=== PATIENT | female | born 1950 | race Caucasian/White ===

== ENCOUNTER 2024-04-08 11:15 | Outpatient (RCR) | payer MEDICARE, BC, SELFPAY ==
--- NOTE | 2024-02-13 15:18 | PT.OPEX ---
PT [place] Outpatient Eval PT [facility] Outpatient Eval Start: 02/06/24 07:42 Freq: Status: Active Protocol: Document 02/13/24 12:40 MLS (Rec: 02/13/24 15:17 MLS [id number]) E-signed By Lakisha Hauser DPT Physical Therapy Outpatient Evaluation Insurance Information Recert Due Date 05/12/24 Insurance Name Medicare B,Blue Cross/Blue Shield Medical Diagnosis M17.11 Unilateral primary OA, right knee Treating Diagnosis Right knee pain Referring MD Dr. Muñiz Subjective Subjective Patient is a 74 year old female who presents to physical therapy with signs and symptoms consistent with right knee pain and OA. She states that the pain started a couple years ago and it has gotten worse over the last couple months. She got a cortisone shot about 2 weeks ago. She states that it did help but she does continue to have pain on the medial and inferior aspect of knee. No complaints of numbness or tingling. She states that she just started doing some yoga and she walks 2 miles flat almost every day. She states that her xrays showed almost bone on bone on the medial side, and almost normal space on the outside. She states that she is planning a [place] trip for this fall. Aggravating factors include: walking, standing, aerobics/ carter, sleeping, stairs Alleviating factors include: ibuprofen, cortisone shot. Significant past medical history includes skin cancer being monitored and osteopenia . Patient would like to build muscle and get back to exercising through physical therapy sessions. 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 Objective Other/Pertinent Objective GAIT/FUNCTIONAL MOBILITY Single leg stance: increase in pain medial aspect Squat: with pain medial aspect KNEE ROM Left: Grossly tested WNL Right: Extension/Flexion: 0-130 HIP ROM Grossly tested WNL B LLE MMT: Hip flexion: R 4-/5 L 4/5 Hip abduction: R 4-/5 L 4/5 Hip extension: R 4/5 L 4/5 Knee flexion: R 4/5 L 4/5 Knee extension: R 4/5 L 4/5 SPECIAL TEST -Anterior drawer: negative -Posterior Drawer: negative -Valgus Test: negative 0-30 -Varus Test: negative 0-30 -Joint line tenderness: medial and lateral joint line tenderness -Jenna test: positive -Bonner Compression: negative TX: Access Code: [email or web address] URL: [email or web address] Date: 02/13/2024 Prepared by: Lakisha Hauser Exercises - Supine Quadricep Sets - 1 x daily - 7 x weekly - 3 sets - 10 reps - 5 hold - Active Straight Leg Raise with Quad Set - 1 x daily - 7 x weekly - 3 sets - 10 reps - Supine Heel Slide - 1 x daily - 7 x weekly - 3 sets - 10 reps - Supine Bridge - 1 x daily - 7 x weekly - 3 sets - 10 reps - 5 hold - Clamshell - 1 x daily - 7 x weekly - 3 sets - 10 reps Functional Test Performed & Score 24/80 A score increase of 6 points shows a significant improvement in lower extremity function. Assessment Assessment/Impression Pt is a 74 year old female who presents with concerns of right knee pain and OA. Patient also has notable objective findings including tenderness to palpation and decreased strength which are also likely contributing to the problem. Patient is a good candidate for skilled therapy to target deficits described above. Skilled PT intervention is necessary for use of therapeutic exercise manual therapy, neuromuscular re- education, gait training, and therapeutic activity. Functional impairments include difficulty with: standing, walking, exercising, and ADLs. See appropriate sections of PT eval for complete list of goals and POC. D/C plan and criteria is for pt to achieve the goals as listed below or until max rehab potential is met. Pt was agreeable with plan of care and goals established. Primary Functional Limitations standing walking exercising ADLs Plan of Care Rehabilitation Potential Good Physical Therapy Goals Within 10-12 weeks: 1.Pt will demonstrate independence in performance of home exercise program with the use of video and/or handouts in order to optimize functional mobility and reduce risk for re-injury. 2.Pt will demonstrate consistent HEP compliance to ensure progress in reaching established goals during course of care. 3.Patient will be able to do yoga for 30 min without pain. 4.Patient will report pain levels <2/10 with all activities in order to improve functional mobility at home, work and during functional leisure activities. 5.Patient is able to sleep without waking more than one time due to pain in a 6-8 hour time frame. 6.Patient will be able to walk her dog up to one mile without pain. 7.Pt will be able to ascend/ descend 1 flight of stairs in order to perform ADLs pain free. 8.Pt will exhibit 6 pt improvement in Lower Extremity functional Scale to demonstrate functional improvement and progress towards goals Coordination/Communication With Referral Source Treatment Plan/Direct Interventions Joint Mobilization,Manual Therapy,Neuromuscular Re-ed, Therapeutic Activities, Therapeutic Exercises, Ultrasound Patient Will Be Discharged From Therapy Independently Progressing Evaluation Billing Untimed Code Treatment Minutes 30 Complexity Low
== END 2024-08-06 23:59 | disposition home or self-care (01) ==
PROVIDERS: PCP Family Medicine; Visit Provider Orthopaedic Surgery
DX: M17.11 Unilateral primary osteoarthritis, right knee (principal); Z51.89 Encounter for other specified aftercare
CPT/HCPCS: 97110; 97140; 97161

== ENCOUNTER 2024-05-30 06:06 | Day surgery (SDC) | payer MEDICARE, BC, SELFPAY ==
[2024-05-29] MEDS: LACTATED RINGERS 1000 ML 1,000 ML 100 ML IV (06:30)
[2024-05-29] MEDS: MIDAZOLAM HCL 1 MG/ML inj IVP (07:04)
[2024-05-29] MEDS: fentaNYL 100 MCG/2 ML inj IVP (07:06)
[2024-05-30] VITALS (21 sets, daily range): BP systolic 91–156; BP diastolic 48–86; PULSE 60–118; RESP 12–18; TEMP 35.5–36.6; O2SAT 95–100; BMI 21.7
[2024-05-30] MEDS: SODIUM CHLORIDE 0.9 % (FLUSH) 10 ML SYRINGE IVF ×2 (06:30→12:19)
[2024-05-30] MEDS: ACETAMINOPHEN 500 MG TABLET 1000 MG PO ×3 (06:40→20:21)
--- NOTE | 2024-05-30 07:13 | SUR.PREOP ---
TIME?OUT:?0703 PT/RN/MDA?VERIFICATION?OF?SURGICAL?SITE,?PROCEDURE,?AND?CONSENT OBTAINED?PRIOR?TO?INVASIVE?PROCEDURE.
[2024-05-30] MEDS: TRANEXAMIC ACID 100 MG/ML INJ 1000 MG IV (07:42)
[2024-05-30] MEDS: CEFAZOLIN 2 GM INJ IVP (07:46)
--- NOTE | 2024-05-30 08:03 | SUR.OPER ---
PATIENT QUESTIONS ANSWERED SATISFACTORILY PREOPERATIVELY.? PATIENT BROUGHT TO OR #3 PER CART AFTER ADMINISTRATION OF A BLOCK.? Patient positioned supine on OR #3 bed.? The perioperative?team supported arms bilaterally on arm boards.?Final approval of positioning by surgeon.?
--- NOTE | 2024-05-30 08:40 | CRLHL7_ITS ---
For Patients: As a result of the Cures Act, medical imaging exams and procedure reports are released immediately into your electronic medical record. You may view this report before your referring provider. If you have questions, please contact your health care provider. Indication: Post op TKA Technique: Two views right knee Findings/Impression: Hardware from a right total knee arthroplasty is in satisfactory position. Bone alignment is normal. No sign of acute fracture. Postop changes are within normal limits. Dictated by Caleb Valera MD @ 05/30/2024 10:43:50 AM (Electronically Signed)
--- NOTE | 2024-05-30 08:42 | P.ORPRC_ITS ---
Procedure Note Date of procedure: 05/30/24 Procedure: PREOPERATIVE DIAGNOSIS: Right knee osteoarthritis POSTOPERATIVE DIAGNOSIS: Right knee osteoarthritis NAME OF OPERATION: Right total knee arthroplasty SURGEON: Roddy Muñiz MD BLANCHING MACHINE OPERATOR: Madelyn Mackey PA-C ANESTHESIA: Spinal ESTIMATED BLOOD LOSS: 0 mL COMPLICATIONS: None SPECIMENS: None DRAINS: None PREOPERATIVE ANTIBIOTICS: Ancef 1 g IMPLANTS: 1. J&J Attune # 4 narrow posterior stabilized femur 2. # 3 fixed-bearing tibia 3. #4 posterior stabilized, 5 mm fixed-bearing polyethylene 4. 35 patella INDICATIONS: The patient is a 74-year-old with a longstanding history of severe, unrelenting right knee pain secondary to end-stage (grade IV) right knee osteoarthritis. Despite appropriate nonoperative management, including activity modification, anti-inflammatories, [id number]-[id number] pain medication, bracing, physical therapy, and injections they continue to have pain and disability. Operative intervention was offered. The risks, benefits and expected outcomes were discussed in detail. These inc luded but were not limited to: Infection, bleeding, injury to blood vessel or nerve, venous thromboembolism. All questions were answered to their satisfaction. Use of an digital sales assistant was necessary throughout the case for patient positioning and safety, soft tissue retraction, and closure. PROCEDURE: Spinal anesthesia was administered. The patient was placed supine on the operating table. The digital sales assistant made sure the patient was positioned appropriately. The lower extremity was prepped and draped in the usual sterile fashion. The limb was exsanguinated with the Joel bandage. The pneumatic tourniquet was inflated to 300 mmHg. A standard anterior incision was made with the knee in flexion. Subcutaneous dissection was sharply taken through fascial layer #1. Full-thickness medial and lateral flaps were elevated. The digital sales assistant retracted the soft tissues and protected them throughout the case. A standard subvastus approach was made. The patella was subluxed. The infrapatellar fat pad was debrided. The menisci and cruciate ligaments were sharply d?brided. Marginal osteophytes were d?brided with the rongeur. The drill was used to penetrate the femoral canal. The canal was aspirated and irrigated with pulse lavage. The intramedullary femoral guide was placed for a 5-degree valgus cut, removing 10 mm off the distal femur. The saw was used to make the cut. Whitesides line and the trans epicondylar axis were marked. The femoral sizing guide was pinned onto the distal femur. Three degrees of external rotation nicely parallels the transepicondylar axis. Pins were placed for posterior referencing. The four-in-one cutting guide was pinned onto the distal femur. The anterior, posterior, and chamfer cuts were made. The digital sales assistant protected the collateral ligaments. The box cutting guide was pinned. The box cuts were made. The boxed trial was placed and was an excellent fit. Drill holes for the lugs were made. Attention was then turned to the proximal tibia. The extramedullary tibial guide was placed for a neutral varus/valgus cut with 5 degrees of posterior slope, removing 0 mm based off the medial tibial surface. The digital sales assistant protected the collateral ligaments and the neurovascular bundle. The saw was used to make the cut. Trial components were placed. The knee was nicely balanced in both flexion and extension. The trial components were removed. The tray was placed in appropriate rotation, parallel to our tibial cutting pins. It was pinned by the digital sales assistant and the drill and the punch were used. The tray was removed. The punch was used again. We placed a bone plug in the femoral canal. Attention was then turned to the patella. [place] patellar thickness was 20 mm. The lobster claw resection guide was used with the 7.5 mm ivette. The saw was used to make the cut. Drill holes were made by the digital sales assistant. The trial was placed and was an excellent fit. Cancellous surfaces were irrigated with pulse lavage and thoroughly dried by the digital sales assistant. We cemented the tibial component, then the femoral component. We impacted the 5 mm polyethylene onto the tibial tray. The knee was brought into full extension. We then cemented the patellar component. Excessive cement was removed. The cement was allowed to harden. The knee was taken through a range of motion and was found to be nicely balanced in both flexion and extension. The patella tracks centrally. The digital sales assistant did a three minute dilute Betadine solution soak. The digital sales assistant irrigated the wound with 3 liters of normal saline via pulse lavage. The digital sales assistant reapproximated the extensor mechanism with #1 Vicryl in an interrupted [id number]-pf-[id number] fashion. The digital sales assistant then ran the extensor mechanism with a #1 PDO Stratafix. The digital sales assistant closed the subcutaneous tissues with a 3-0 Stratafix and the skin with a running 3-0 Stratafix in a subcuticular fashion. Glue was used to seal the skin. The digital sales assistant placed a dry dressing. Sponge and needle counts were correct x2. The patient tolerated the procedure well. There were no apparent complications. They were carefully transferred to the hospital bed and taken to the postanesthesia care unit in satisfactory condition. PLAN: The patient will be mobilized with physical therapy. Aspirin will be used for DVT prophylaxis. They will be discharged to home once medically appropriate.
--- NOTE | 2024-05-30 09:14 | W.ANESCHARGE ---
Anesthesia Charges Start Date/Time Anesthesia Start Date: 05/30/24 Anesthesia Start Time: 07:19 Stop Date/Time Anesthesia Stop Date: 05/30/24 Anesthesia Stop Time: :29 Summary Extremes of Age - Over 70 or under 1: MDA
--- NOTE | 2024-05-30 09:15 | P.NB_ITS ---
Nerve Block Nerve Block Time Seen by Provider: 07:06 Date Seen: 05/30/24 Type of block requested by surgeon for post-operative analgesia: geniculars Side: right Time out performed: Yes Verification of patient name: Yes Verification of date of : Yes Site marking: site marked Name of person performing procedure: Rob Continuous monitoring Was continuous monitoring of O2 sat, B/P, tack cleaner, recorded every 15 minutes?: Yes Procedure Checklist: sterile prep, needles and gloves Medications given in 5ml increments after negative aspiration: Ropivicaine %: 0.5 mL: 9 Needle gauge: 25 Patient tolerated procedure well: Yes Block Charges Block Charge (with Pro Fee): Genicular Nerve Block Use of Ultrasound Machine for Block: No
--- NOTE | 2024-05-30 09:15 | W.PM.NB ---
Nerve Block Nerve Block Time Seen by Provider: 07:06 Date Seen: 05/30/24 Type of block requested by surgeon for post-operative analgesia: adductor canal Side: right Time out performed: Yes Verification of patient name: Yes Verification of date of : Yes Site marking: site marked Name of person performing procedure: Rob Continuous monitoring Was continuous monitoring of O2 sat, B/P, monitor and storage bin tender, recorded every 15 minutes?: Yes Procedure Checklist: sterile prep, needles and gloves Ultrasound guided. Images saved: Yes Medications given in 5ml increments after negative aspiration: Ropivicaine %: 0.5 mL: 20 Needle gauge: 20 Decadron (mg): 10 Precedex (mcg): 25 Patient tolerated procedure well: Yes Additional comments: Needle noted adjacent to nerve Block Charges Block Charge (with Pro Fee): Femoral Nerve Use of Ultrasound Machine for Block: Yes- US Guidance/pain block
--- NOTE | 2024-05-30 09:28 | P.ANES_ITS ---
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
[2024-05-30] MEDS: LACTATED RINGERS 1000 ML 1,000 ML 100 ML IV (09:30)
[2024-05-30] MEDS: HYDROmorphone 0.5 mg/0.5 ml inj IVP ×2 (12:08→20:22)
[2024-05-30] MEDS: CEFAZOLIN 1 GM in 0.9 % SODIUM CHLORIDE Mini-bag 100 ML IVPB ×2 (13:47→22:46)
[2024-05-30] MEDS: OXYCODONE 5 MG TABLET PO ×3 (13:47→22:46)
[2024-05-30] MEDS: ONDANSETRON 2 MG/ML inj 4 MG IVP ×2 (16:55→22:47)
--- NOTE | 2024-05-30 18:50 | PM.IMCN1 ---
Date of Consult Patient: [place] Patient Consult date: 05/30/24 Requesting Physician: Orthopedics Primary Care Provider: Kristyn Bletran MD Consult Narrative Reason for consult: Post op management for overactive bladder Narrative: Anna Bellamy is a 74 year old woman with advanced, symptomatic right gonarthrosis undergoes elective right total knee arthroplasty on 05/30/[address] Muñiz, [place], [place]. No apparent complications. Doing well immediately postoperatively. Review of Systems Status of ROS: Reports: 6 or more systems reviewed and unremarkable except as noted in History and below [facility] Medical History OAB (overactive bladder) ?N32.81 - Overactive bladder (ICD-10) Osteopenia ?M85.80 - Other specified disorders of bone density and structure, unspecified site (ICD-10) Dry eye ?H04.129 - Dry eye syndrome of unspecified lacrimal gland (ICD-10) Atypical nevi ?D22.9 - Melanocytic nevi, unspecified (ICD-10) Glaucoma ?H40.9 - Unspecified glaucoma (ICD-10) Melanoma ?C43.9 - Malignant melanoma of skin, unspecified (ICD-10) Basal cell carcinoma (BCC) ?C44.91 - Basal cell carcinoma of skin, unspecified (ICD-10) Surgical History History of arthroplasty of right knee (05/30/24) ?Z96.651 - Presence of right artificial knee joint (ICD-10) History of wisdom tooth extraction ?K08.409 - Partial loss of teeth, unspecified cause, unspecified class (ICD-10) History of elbow surgery (1962) ?Z98.890 - Other specified postprocedural states (ICD-10) Family History Mother Breast cancer Brother Diabetes Sleep apnea Heart disease Aunt Breast cancer Social History Narrative: -Dougie What is your current living situation?: I presently have a place to live Problems where you live: no known problems In the past 12 months, utilities in danger of being shut off: no In past 12 months, lack of transportation kept you from medical appts, meetings, work, or getting things needed for daily living: no In the past 12 mos, have been you worried that your food would run out before you had money to buy more?: never true In the past 12 mos, the food you bought just didn't last and you didn't have money to buy more?: never true Highest level of school completed/degree received: some college, no degree Smoking Status: Never smoker Do you use any of these nicotine containing products: None Second hand tobacco smoke exposure: No How often do you have a drink containing alcohol: monthly or less Alcohol type: beer and wine How many standard drinks containing alcohol do you have on a typical day: 1 or 2 How often do you have six or more drinks on one occasion: Never AUDIT-C Alcohol total score: 1 Non-prescribed substance use: denies use Caffeine: Yes (1 cup daily) Are you now , , , , never or living with a partner: Social isolation score (0-1 are the most socially isolated patients): 1 How often does anyone, including family, friends and others, physically hurt you: never How often does anyone, including family, friends and others, insult or talk down to you: never How often does anyone, including family, friends and others, threaten you with harm: never How often does anyone, including family, friends and others, scream or curse at you: never service: No Meds Home Medications and Allergies Home Medications ?Medication ?Instructions ?Recorded ?Confirmed ?Type calcium carbonate (Calcium 600) 600 mg PO DAILY 01/24/24 05/30/24 History multivitamin (Multiple Vitamins 1 tab PO DAILY 01/24/24 05/30/24 History tablet) omega-3 fatty acids 1,000 mg 1,000 mg PO DAILY 01/24/24 05/30/24 History capsule solifenacin 5 mg tablet 5 mg PO DAILY 01/24/24 05/30/24 History digestive enzymes 1 cap PO DAILY 05/28/24 05/30/24 History cholecalciferol (vitamin D3) 25 25 mcg PO DAILY 05/30/24 05/30/24 History mcg (1,000 unit) capsule Allergies Allergy/AdvReac Type Severity Reaction Status Date / Time amoxicillin [From Augmentin] Allergy Vomiting Verified 05/30/24 06:31 clavulanic acid Allergy Vomiting Verified 05/30/24 06:31 [From Augmentin] hydrocodone Allergy severe Verified 05/30/24 06:31 illness thiopental Allergy Nausea Verified 05/30/24 06:31 tetracycline AdvReac Nausea Verified 05/30/24 06:31 Exam Narrative: Exam Narrative: I examine her in her hospital room. Appears comfortable and in no acute distress. Somewhat hard of hearing but adequate with adequate vision. Alert and oriented x4. Friendly, articulate, cooperative. Lungs entirely clear to auscultation without wheezing, rhonchi, or rales. Chest wall excursions are full. Heart tones with regular rhythm, normal S1-S2, without murmur, gallop, or rub. PMI not laterally displaced. Abdomen is thin with active bowel sounds, soft, nontender. Moves all 4 extremities. No focal motor neurologic deficits. Const: Vital Signs, click to edit/add: Vital Signs - 24 hr 05/30/24 06:53 05/30/24 07:04 05/30/24 07:10 Temperature 97.7 F Pulse Rate 104 H 118 H 81 Pulse Rate [Left P ulse Oximeter] Respiratory Rate 16 16 16 Blood Pressure 151/74 H 156/86 H 130/71 Blood Pressure [Le ft Arm] Pulse Oximetry 100 100 100 Oxygen Delivery Me thod Room Air Nasal Cannula Nasal Cannula Oxygen Flow Rate 2 2 05/30/24 09:25 05/30/24 09:30 05/30/24 09:40 Temperature 97.4 F L Pulse Rate 78 77 66 Pulse Rate [Left P ulse Oximeter] Respiratory Rate 15 12 12 Blood Pressure 96/50 L 97/56 L 96/48 L Blood Pressure [Le ft Arm] Pulse Oximetry 95 97 97 Oxygen Delivery Me thod Room Air Room Air Room Air Oxygen Flow Rate 05/30/24 09:45 05/30/24 09:50 05/30/24 10:03 Temperature 97.3 F L 95.9 F L Pulse Rate 68 67 70 Pulse Rate [Left P ulse Oximeter] Respiratory Rate 12 12 16 Blood Pressure 100/55 L 112/59 L 93/54 L Blood Pressure [Le ft Arm] Pulse Oximetry 100 100 96 Oxygen Delivery Me thod Room Air Room Air Room Air Oxygen Flow Rate 2 0 05/30/24 10:15 05/30/24 10:30 05/30/24 10:45 Temperature 96.3 F L Pulse Rate 64 65 64 Pulse Rate [Left P ulse Oximeter] Respiratory Rate 16 16 16 Blood Pressure 103/56 L 91/61 101/58 L Blood Pressure [Le ft Arm] Pulse Oximetry 97 97 [address] [facility] Room Air Oxygen Flow Rate 05/30/24 11:00 05/30/24 11:30 05/30/24 12:00 Temperature 96.9 F L 97.2 F L Pulse Rate 63 60 69 Pulse Rate [Left P ulse Oximeter] Respiratory Rate 16 16 18 Blood Pressure 109/62 116/59 L 124/63 Blood Pressure [Le ft Arm] Pulse Oximetry 98 98 [address] [facility] Room Air Room Air Oxygen Flow Rate 05/30/24 13:00 05/30/24 14:00 05/30/24 15:30 Temperature 97.9 F 97.8 F Pulse Rate 64 68 Pulse Rate [Left P ulse Oximeter] 82 Respiratory Rate 16 16 18 Blood Pressure 118/80 124/58 L Blood Pressure [Le ft Arm] 105/61 Pulse Oximetry 96 99 [address] [facility] Room Air Room Air Oxygen Flow Rate 05/30/24 15:50 05/30/24 16:30 Temperature 97.6 F Pulse Rate Pulse Rate [Left P ulse Oximeter] 84 Respiratory Rate 16 Blood Pressure Blood Pressure [Le ft Arm] 106/63 Pulse Oximetry [address] [facility] Oxygen Flow Rate Assessment and Plan Assessment and plan (1) Osteoarthritis of right knee: Status: Acute (2) History of arthroplasty of right knee: Problem comment: - Right total knee arthroplasty (05/30/2024, Dr. Muñiz) who will continue to manage the patient in hospital and in the outpatient setting as planned - agree with postoperative venous thromboembolism prophylaxis per Orthopedic surgery - agree with perioperative antibiotic prophylaxis per Orthopedic surgery - hospitalists available to support patient care in her postoperative state - PT and OT assessing and supporting patient in hospital with plans for outpatient follow-up - completed hospitalist portion of discharge Status: Acute (3) OAB (overactive bladder): Problem comment: - medically supported with solifenacin ([facility]) Status: Acute Plan 1. Reviewed impression with patient 2. Reviewed recommendations with patient 3. Answered patient's questions to her satisfaction 4. Patient agreeable with above stated plans and recommendations Total Time Spent Total Time Spent: 50 minutes
[2024-05-30] MEDS: SENNOSIDES 1 TAB TABLET 2 TAB PO (20:22)
[2024-05-30] MEDS: ASPIRIN 81 MG TABLET EC PO (20:22)
--- NOTE | 2024-05-30 23:40 | PC.NURSE ---
Patient alert and orientedx4. Complains of nausea. Had one episode of emesis( brown liquid,100ml). PRN Zofran given with minimal effect. Continued to complain of nausea. Hardly eats any food this shift( 2 ice cream cups). She does complain of feeling dizzy. ( Has diagnosis of vertigo) Bowel sounds active, patient reports passing flatulence and burping. Patient also rates pain high 8/10 despite multiple interventions for pain management. She is able to ambulate with Ax1 with a walker and gait belt to the bathroom. No skin issues noted. Vitals signs remain stable.
[2024-05-31 01:21] VITALS: RESP 16; O2SAT 97
[2024-05-31] MEDS: ACETAMINOPHEN 500 MG TABLET 1000 MG PO ×2 (02:20→08:12)
[2024-05-31 02:22] VITALS: BP 108/58; PULSE 96; RESP 18; TEMP 36.4; O2SAT 95
[2024-05-31] MEDS: OXYCODONE 5 MG TABLET PO ×3 (04:56→10:21)
[2024-05-31 06:48] LABS: Basophils Percent Auto 0.1 % (0.0-3.0); Hematocrit 32.5 % (33.0-51.0); Hemoglobin* 10.6 gm/dL (12.0-16.0); Immature Granulocytes Pct Auto 0.3 %; Mean Corpuscular HGB Conc 33 gm/dL (32-36); Mean Corpuscular Hemoglobin 29 pg (26-34); Mean Corpuscular Volume 89 fL (80-100); Monocytes Percent Auto 9.4 % (0.0-11.0); Neutrophils Percent Auto 80.2 % (42.0-72.0); Platelet Count* 224 K/uL (140-440); RDW Coefficient of Variation % 13.1 % (11.5-15.5); Red Blood Count 3.66 m/uL (4.00-5.20)
[2024-05-31 06:53] LABS: Slide Review Reflex No
--- NOTE | 2024-05-31 06:56 | PC.NURSE ---
End of shift [id number]: A&O pleasant and cooperative. VSS. positive CMS. LELAND wrap to knee c/d/i. pt rating pain 5-8/10. see eMAR for interventions. Pt denying n/v overnight. pt reports dizziness only when sitting up quickly. ambulating to bathroom w/ A1 walker and gait belt. tolerated well. IV fluids in place d/t n/v on previous shift. using call light appropriately.
[2024-05-31 07:12] LABS: Potassium* 4.2 mmol/L (3.6-5.1); Sodium* 136 mmol/L (135-149)
[2024-05-31 07:15] LABS: Blood Urea Nitrogen* 25 mg/dL (7-30); Creatinine* 0.7 mg/dL (0.5-1.5); Est. Creatinine Clearance* 36.85; Estimated Glomerular Filt Rate 91 ml/min
[2024-05-31 07:19] LABS: INR 1.06 (0.91-1.10); Prothrombin Time 14.4 Seconds
--- NOTE | 2024-05-31 07:21 | PM.ORPN ---
Subjective Subjective Time Seen by Provider: 06:45 Date Seen: 05/31/24 Principal diagnosis: Day 1 s/p right TKA Interval history: Anna is doing well this morning and is resting comfortably in bed. Right knee pain is well managed with oxycodone, tylenol and icing. Denies postop chest pain, SOB, fever, chills. Admits to right foot numbness/tingling but this has resolved. Yesterday, Anna had one episode of emesis around 2300. She believes the cause was her vertigo. This has resolved. No nausea or emesis this AM. Ortho Exam Narrative Exam Narrative: Incision/Dressing: Dressing appears clean and dry. No drainage present. Mepilex intact. Right knee appears moderately swollen but supple with no obvious erythema, fluctuance or excessive warmth. No ecchymosis or erythematous streaking. Warmth around the wound is appropriate. Ice is being utilized as needed. CMS: Intact distally with 2+ Dorsalis pedis and Posterior Tibial pulses. 5/5 motor strength dorsal and plantar flexion. Confirmed sensation distally. Calf: Bilateral calves are supple, with no swelling, pain, tenderness, erythema, discoloration or coolness to the touch. Constitutional: Patient is alert and oriented x3. Patient is in no acute distress and converses without labored breathing. Patient is able to make decisions and demonstrates good insight. Patient is pleasant and cooperative. Affect is full range and appropriate for the circumstances. Const Vital Signs, click to edit/add: Vital Signs - 24 hr 05/30/24 09:25 05/30/24 09:30 05/30/24 09:40 Temperature 97.4 F L Pulse Rate 78 77 66 Pulse Rate [Left Pulse Oximeter] Respiratory Rate 15 12 12 Blood Pressure 96/50 L 97/56 L 96/48 L Blood Pressure [Left Arm] Pulse Oximetry 95 97 97 Oxygen Delivery Method Room Air Room Air Room Air Oxygen Flow Rate 05/30/24 09:45 05/30/24 09:50 05/30/24 10:03 Temperature 97.3 F L 95.9 F L Pulse Rate 68 67 70 Pulse Rate [Left Pulse Oximeter] Respiratory Rate 12 12 16 Blood Pressure 100/55 L 112/59 L 93/54 L Blood Pressure [Left Arm] Pulse Oximetry 100 100 96 Oxygen Delivery Method Room Air Room Air Room Air Oxygen Flow Rate 2 0 05/30/24 10:15 05/30/24 10:30 05/30/24 10:45 Temperature 96.3 F L Pulse Rate 64 65 64 Pulse Rate [Left Pulse Oximeter] Respiratory Rate 16 16 16 Blood Pressure 103/56 L 91/61 101/58 L Blood Pressure [Left Arm] Pulse Oximetry 97 97 96 Oxygen Delivery Method Room Air Room Air Room Air Oxygen Flow Rate 05/30/24 11:00 05/30/24 11:30 05/30/24 12:00 Temperature 96.9 F L 97.2 F L Pulse Rate 63 60 69 Pulse Rate [Left Pulse Oximeter] Respiratory Rate 16 16 18 Blood Pressure 109/62 116/59 L 124/63 Blood Pressure [Left Arm] Pulse Oximetry 98 98 97 Oxygen Delivery Method Room Air Room Air Room Air Oxygen Flow Rate 05/30/24 13:00 05/30/24 14:00 05/30/24 15:30 Temperature 97.9 F 97.8 F Pulse Rate 64 68 Pulse Rate [Left Pulse Oximeter] 82 Respiratory Rate 16 16 18 Blood Pressure 118/80 124/58 L Blood Pressure [Left Arm] 105/61 Pulse Oximetry 96 99 98 Oxygen Delivery Method Room Air Room Air Room Air Oxygen Flow Rate 05/30/24 15:50 05/30/24 16:30 05/30/24 18:59 Temperature 97.6 F Pulse Rate Pulse Rate [Left Pulse Oximeter] 84 79 Respiratory Rate 16 18 Blood Pressure Blood Pressure [Left Arm] 106/63 124/63 Pulse Oximetry 95 96 Oxygen Delivery Method Room Air Room Air Oxygen Flow Rate 05/30/24 23:22 05/31/24 01:21 05/31/24 02:22 Temperature 97.4 F L 97.6 F Pulse Rate Pulse Rate [Left Pulse Oximeter] 96 Respiratory Rate 16 16 18 Blood Pressure Blood Pressure [Left Arm] 132/56 L 108/58 L Pulse Oximetry 97 97 95 Oxygen Delivery Method Room Air Room Air Room Air Oxygen Flow Rate Assessment and Plan Assessment and plan (1) History of arthroplasty of right knee: Problem details: - Right total knee arthroplasty (05/30/2024, Dr. Muñiz) Status: Acute Plan - May consider antiemetic medication upon discharge if emesis/nausea returns, but Anna was doing well this AM during our conversation. - Complete 23 hour perioperative antibiotics. - PT/OT consults for education and assistance. - Weight bear as tolerated with a walker for assistance. - Prescribed analgesics as needed. Patient is content with current narcotic medications. Minimize narcotic pain medication use; wean off and discontinue as soon as possible. - DVT prophylaxis: aspirin 81 mg BID x 30 days. Also, frequent ambulation and ankle pumps when sedentary. - Social consult for discharge planning. - Anticipate patient will be discharged to home this afternoon if the patient remains medically stable, pain is controlled and is safe with ambulation. - Return to clinic in 1 week for a wound check. Mepilex dressing will be removed at this appointment. Remove sooner if dressing becomes saturated. - Return to clinic in [address] Muñiz - Phone Orthopedics with any questions or concerns. [phone]
[2024-05-31 07:25] VITALS: BP 108/48; PULSE 85; RESP 16; TEMP 36.3; O2SAT 98
[2024-05-31] MEDS: SENNOSIDES 1 TAB TABLET 2 TAB PO (08:12)
[2024-05-31] MEDS: ASPIRIN 81 MG TABLET EC PO (08:12)
[2024-05-31] MEDS: ONDANSETRON ODT 4 MG TAB PO (10:18)
[2024-05-31 10:22] VITALS: BP 138/57; PULSE 83; RESP 16; TEMP 36.4; O2SAT 97
--- NOTE | 2024-05-31 12:15 | PC.NURSE ---
Pt alert and oriented. Pt had complaints of pain ranging 5-10 see EMAR for intervention. Pt up with a SBA with walker and gait belt. Pt's IV removed catheter intact.Pt ruthy wrap is dry and intact. Discharge instructions gone over with Pt and spouse.
== END 2024-05-31 10:47 | disposition home or self-care (01) ==
LOC: OR 06:07 → MEDSURG 06:18
PROVIDERS: PCP Family Medicine; Visit Provider Orthopaedic Surgery
PROC: (CPT 27447; principal; 2024-05-30 07:15)
DX: M17.11 Unilateral primary osteoarthritis, right knee (principal); G89.18 Other acute postprocedural pain; N32.81 Overactive bladder
CPT/HCPCS: 27447; 01402; 36415; 64454; 73560; 76942; 82565; 84132; 84295; 84520; 85025; 85610; 97110; 97116; 97161; 97165; 97530; 97535; 99100; A9270; C1776; J0690; J1100; J1170; J2250; J2405; J2704; J2795; J3010; J7120

== ENCOUNTER 2024-08-29 16:00 | Outpatient (RCR) | payer MEDICARE, BC, SELFPAY ==
--- NOTE | 2024-05-28 11:48 | PT.OPEX ---
PT [place] Outpatient Eval PT [facility] Outpatient Eval Start: 05/28/24 07:03 Freq: Status: Active Protocol: Document 05/28/24 07:04 MLS (Rec: 05/28/24 11:47 MLS [id number]) E-signed By Lakisha Hauser DPT Physical Therapy Outpatient Evaluation Insurance Information Recert Due Date 08/25/24 Insurance Name Medicare B,Blue Cross/Blue Shield Medical Diagnosis M17.11 Unilateral primary OA, right knee Z96.651 presence of right artificial knee joint s/p right TKA 05/30/24 Treating Diagnosis TKA protocol Referring MD Dr. Muñiz Subjective Subjective Patient is a 74 year old female who presents to physical therapy for her pre- op appointment prior to right TKA on 05/30/24. She states that she has had right knee pain for years. She has been having some on and off vertigo episodes, which she is being treated by her chiropractor. Significant past medical history includes skin cancer ( being monitored), arthritis. vertigo and osteopenia. Pain Comments Today: 7/10 on a 0-10 pain scale with 10 = extreme pain At its worst: 9/10 At its best: 0/10 Current Work Status Retired Precautions Weight Bearing Status Weight Bear as Tolerated Therapy Limitations/Systems Review Not Limited Objective Other/Pertinent Objective GAIT/FUNCTIONAL MOBILITY Independent KNEE ROM Left: WNL Right: Extension/Flexion: 0-120 HIP ROM Grossly tested WNL LLE MMT: Hip flexion: R 4/5 L 4/5 Hip abduction: R 4/5 L 4/5 Hip extension: R 4/5 L 4/5 Knee flexion: R 4/5 L 4/5 Knee extension: R 4/5 L 4/5 TX: Reviewed/demonstrated on frequency to perform HEP post operatively including: long sitting quad ankle pumps supine heel slide with strap supine quad sets supine SAQ SLR with quad set seated long arc quad seated knee flexion AAROM supine knee extension stretch on towel roll Extensive discussion and education on what to expect post operatively. Time was spent discussing home modifications, Assistive devices, pain control, fall prevention, hospital stay time line, and assist needed for activities post surgically. Pt questions were answered and demonstrated understanding. Assessment Assessment/Impression Pt is a 74 year old female who presents to PT prior to her right TKA on 05/30/24. Patient also has notable objective findings including decreased strength which are also likely contributing to the problem. Patient is a good candidate for skilled therapy to target deficits described above. Skilled PT intervention is necessary for use of therapeutic exercise manual therapy, neuromuscular re- education, gait training, and therapeutic activity. Functional impairments include difficulty with: standing, driving, sleeping, exercising, walking and ADLs. See appropriate sections of PT eval for complete list of goals and POC. D/C plan and criteria is for pt to achieve the goals as listed below or until max rehab potential is met. Pt was agreeable with plan of care and goals established. Primary Functional Limitations standing walking driving exercising ADLs sleeping Plan of Care Rehabilitation Potential Good Physical Therapy Goals Within 10-12 weeks: 1) Pt will improve knee AROM at least 0 to 120 for improved sit to stand transfers 2) Pt will demonstrate negative extensor lag during straight leg raise exercise with ability to complete at least 15 reps with 5 sec hold to improve strength for ambulation 3) Patient will demonstrate/ report ability to walk for 15 minutes w/SPC with pain level <1/10, to allow for community and household ambulation. 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 Coordination/Communication With Referral Source Treatment Plan/Direct Interventions Manual Therapy,Neuromuscular Re-ed,Therapeutic Activities, Therapeutic Exercises Patient Will Be Discharged From Therapy Independently Progressing Evaluation Billing Untimed Code Treatment Minutes 30 Complexity Low Certification Information Provider Signature Required Yes Provider Signature Shows Agreement With POC & Medical Necessity Physician NPI Number Write NPI# Here Physician Comment/Change : Physician Signature & Date Requested Please Sign/Date Here
--- NOTE | 2024-08-29 16:04 | PT.OPDNX ---
PT [place] Outpatient Daily Note PT [facility] Outpatient Daily Note Start: 05/28/24 07:03 Freq: Status: Active Protocol: Document 08/29/24 10:28 MLS (Rec: 08/29/24 16:03 MLS [id number]) E-signed By Lakisha Hauser DPT PT OP Daily Progress Note Visit Information Note Type Daily Note Visit Number [id number] Insurance Information Recert Due Date 08/25/24 Insurance Name Medicare B,[employer] Medical Diagnosis M17.11 Unilateral primary OA, right knee Z96.651 presence of right artificial knee joint s/p right TKA 05/30/24 Treating Diagnosis TKA protocol Referring MD Dr. Muñiz Subjective Subjective Patient is a 74 year old female who presents to physical therapy post-op right TKA on 05/30/24. She states that she has been sick for two weeks. She states that she also slipped on the stairs and landed on her back. Pain Comments Today: 3-4/10 on a 0-10 pain scale with 10 = extreme pain Precautions Weight Bearing Status Weight Bear as Tolerated Objective Other/Pertinent Objective GAIT/FUNCTIONAL MOBILITY FWW KNEE ROM Left: WNL Right: Extension/Flexion: 0-95 on own , 0-105 with OP Patient Instructed in Risks/Benefits Yes Therapeutic Exercise Therapeutic Exercise Minutes (minutes) 15 Therapeutic Exercise: To Restore Manual flexion and extension Functional Status stretching in prone, sitting and supine positions Not today: Recumbent bike, seat level 1, forward revolutions 6 min Forward walking backward, high knee walking throughout session Leg press, notch 2, 80# x 20, 30 sec hold in between Single leg press x 10, 45# Knee extension machine, plate 2, x 15 Sitting HS curl machine, plate 3 x 10 Flexion and extension stretching on stairs, gastroc stretching - throughout session front step ups 6 inch x10 Lateral step downs (taps) x 10 Manual Therapy Techniques Manual Therapy Minutes (minutes) 28 Manual Therapy Techniques DTM to right quad and surrounding knee musculature in supine position. Treatment Minutes Timed Code Treatment Minutes 43 Total Treatment Time 43 Billing Units Manual Therapy Units 2 Therapeutic Exercise Units 1 Assessment/Impression Assessment/Impression Pt is a 74 year old female who presents to PT s/p right TKA on 05/30/24. Patient measured at 0-120 extension/flexion at beginning of session and 0-125 at end of session with OP. She did slip on her stairs and landed on her left low back. She does have a large hematoma on her left glute. She has progressed nicely with PT to improve her range of motion and decrease her knee pain. Plan of Care Physical Therapy Goals Within 10-12 weeks: 1) Pt will improve knee AROM at least 0 to 120 for improved sit to stand transfers MET 2) Pt will demonstrate negative extensor lag during straight leg raise exercise with ability to complete at least 15 reps with 5 sec hold to improve strength for ambulation MET 3) Patient will demonstrate/ report ability to walk for 15 minutes w/SPC with pain level <1/10, to allow for community and household ambulation. 4) Pt will be indep with HEP for alf management of pain/symptoms 5) Patient will ascend/descend at least 10 steps using single rail and reciprocal pattern to improve ease of mobility at home/community MET 7) Patient will demonstrate/ report ability to walk for 15 minutes w/o AD with pain level <1/10, to allow for community and household ambulation. Daily Plan of Care Continue per POC Recertification Information Initial Certification Date 05/28/24 Recertification Start Date 08/29/24 Recertification Due Date 08/25/24 Reasons to Continue Skilled Therapy Recert for todays visit only and then d/c. Anna had several visits get cancelled secondary to being sick throughout her knee rehab. Today was her final appointment. She is at 0-120 extension/flexion with difficulty. She did recently slip on her stairs and landed on her left glute, where she now has a large hematoma. No increased pain in her rigtht knee. Rehabilitation Potential Excellent Continued Plan of Care and Interventions Discharge after todays visit Provider Signature Shows Agreement With POC & Medical Necessity Physician Comment/Change Comment or Changes Physician NPI Number #
== END 2024-10-28 08:30 | disposition home or self-care (01) ==
PROVIDERS: PCP Family Medicine; Visit Provider Orthopaedic Surgery
DX: M17.11 Unilateral primary osteoarthritis, right knee (principal); Z96.651 Presence of right artificial knee joint; Z51.89 Encounter for other specified aftercare
CPT/HCPCS: 97110; 97140; 97161; 97164